=== PATIENT | male | born 1965 | race Caucasian/White ===

== ENCOUNTER 2017-08-10 15:59 | Emergency (ER) | payer OTHER ==
[~2017-08-10] VITALS: Ht 177.8 cm; Wt 99.8 kg
--- NOTE | ~2017-08-10 | EKG ---
[address] [address] ELECTROCARDIOGRAM REPORT Name: SARAINestorSANTIAGO Esquivel Room #: [facility]#: [id number] Admission: 08/10/17 Attend Phys: Discharge: 08/10/17 Date of : 65 Report #: [id number] THIS REPORT FOR: //name// [facility] ED Test Date: 2017-08-10 Test Time: 16:42:55 Pat Name: SANTIAGO GIORDANO Department: Room: Gender: M President [employer]: [employer] : 1965 Requested By: Jessi Barrera Order Number: [id number] MD: Ricky Medina Measurements Intervals [place] Rate: 63 P: 7 ND: 175 QRS: -12 QRSD: 102 T: 40 QT: 408 QTc: 418 Interpretive Statements Sinus rhythm RSR' in V1 or V2, probably normal variant Compared to ECG 08/23/2012 13:14:01 RSR' in V1 or V2 now present T-wave abnormality no longer present Electronically Signed On 08-11-2017 14:28:53 CDT by Ricky Medina [email or web address] <ELECTRONICALLY SIGNED> By: Ricky Medina MD 08/11/17 1428 164 164 Ricky Medina MD /EPI
[~2017-08-10 15:59] MED LIST: ATORVASTATIN CA10 MG; DIABETA 1.25M1.25 M1; LISINOPRIL2.5 MG; METFORMIN HYDR100 GM; NORVASC 2.5 MG2.5 M1; ULTRAM 50MG TAB50 MG PO
[2017-08-10] MEDS ORDERED: METFORMIN HCL500 MG PO (16:22)
[2017-08-10 16:50] LABS: ABSOLUTE NEUTROPHILS 5.7 thou/uL (1.4-8.2); BASOPHILS 0.4 % (0.0-2.0); EOSINOPHILS 0.9 % (0.0-3.0); HEMATOCRIT 44.5 % (42.0-52.0); HEMOGLOBIN 15.3 gm/dL (14.0-18.0); LYMPHOCYTES 19.1 % (24.0-44.0); MCH 29.3 pg (26.0-34.0); MCHC 34.5 g/dL (28.0-37.0); MONOCYTES 4.8 % (1.0-8.0); PLATELET COUNT 297 thou/uL (150-400); POLYS 74.8 % (36.0-66.0); RBC 5.24 mil/uL (4.50-6.00); RDW 12.9 % (10.5-14.5); WBC 7.7 thou/uL (4.0-11.0)
[2017-08-10 16:51] LABS: URINE BILIRUBIN NEGATIVE (Negative); URINE BLOOD NEGATIVE (Negative); URINE CLARITY CLEAR; URINE COLOR YELLOW; URINE GLUCOSE-RANDOM* NEGATIVE (Negative); URINE KETONES NEGATIVE (Negative); URINE LEUKOCYTES-REFLEX NEGATIVE (Negative); URINE NITRITE-REFLEX NEGATIVE (Negative); URINE PROTEIN (DIPSTICK) NEGATIVE (Negative); URINE SPECIFIC GRAVITY 1.015 (1.005-1.035); URINE UROBILINOGEN 0.2 E.U./dl (0.2-1.0)
[2017-08-10 17:01] LABS: ANION GAP 11 mmol/L (7-16); BUN 13 mg/dL (7-18); CALCIUM 9.5 mg/dL (8.5-10.1); CHLORIDE 100 mmol/L (98-107); CO2 27 mmol/L (21-32); CREATININE 0.8 mg/dL (0.7-1.3); GLUCOSE 194 mg/dL (74-106); POTASSIUM 3.7 mmol/L (3.5-5.1); SODIUM 138 mmol/L (136-145)
[2017-08-10 17:10] LABS: ALBUMIN 4.3 g/dL (3.4-5.0); SGOT 23 U/L (15-37); SGPT 44 U/L (30-65); TOTAL BILIRUBIN 0.3 mg/dL (<0.1-1.0); TOTAL PROTEIN 8.2 g/dL (6.4-8.2); TROPONIN-I < 0.04 ng/mL (<0.06)
[2017-08-10] MEDS ORDERED: DOXYCYCLINE 10100 MG PO (18:27)
[2017-08-10 18:54] VITALS: BP 156/80
== END 2017-08-10 19:23 | disposition home or self-care (01) ==
LOC: ER 15:59
PROVIDERS: Nurse Practitioner Family
DX: S00.86XA Insect bite (nonvenomous) of other part of head, initial encounter (principal); B34.9 Viral infection, unspecified; E11.9 Type 2 diabetes mellitus without complications; I10 Essential (primary) hypertension; W57.XXXA Bitten or stung by nonvenomous insect and other nonvenomous arthropods, initial encounter; Y92.89 Other specified places as the place of occurrence of the external cause; Y93.89 Activity, other specified; Y99.8 Other external cause status; Z90.89 Acquired absence of other organs; Z98.52 Vasectomy status